=== PATIENT | female | born 1995 | race Caucasian/White ===

== ENCOUNTER 2016-08-16 21:36 | Emergency (ER) | payer OTHER ==
[2016-08-16 22:25] LABS: BILIRUBIN NEGATIVE (NEGATIVE); BLOOD 3+ Ery/uL (NEGATIVE); COLOR YELLOW (YELLOW); GLUCOSE (U) NORMAL (NORMAL); KETONE (U) NEGATIVE (NEGATIVE); LEUKOCYTES NEGATIVE Leu/uL (NEGATIVE); NITRITE NEGATIVE (NEGATIVE); PROTEIN NEGATIVE (NEGATIVE); SPECIFIC GRAVITY 1.015 (1.001-1.030); UROBILINOGEN 0.2 mg/dL (0.2-1.0); pH 6.5 (5.0-9.0)
[2016-08-16 22:25] LABS: BASOPHIL 0.5 % (0-2); EOSINOPHIL 2.7 % (0-5); HCT 38.6 % (37.0-47.0); HGB 12.7 g/dl (12.5-16.0); LYMPHOCYTE 45.2 % (15-48); MCHC 32.9 g/dL (32.0-36.0); MCV 88.1 fL (78.0-100.0); MONOCYTE 14.6 % (0-12); MPV 11.5 fL (6.0-9.5); PLT 355 K/uL (150-400); RBC 4.38 M/uL (4.20-5.40); RDW 13.5 % (11.5-14.0); WBC 9.4 K/uL (4.0-10.5)
[2016-08-16 22:26] LABS: CLARITY SLIGHTLY HAZY (CLEAR)
[2016-08-16 22:30] LABS: BACTERIA TRACE
[2016-08-16 22:32] LABS: AMPHETAMINES NEGATIVE (NEGATIVE); BARBITURATES NEGATIVE (NEGATIVE); BENZODIAZEPINES NEGATIVE (NEGATIVE); COCAINE NEGATIVE (NEGATIVE); MARIJUANA (THC) NEGATIVE (NEGATIVE); METHADONE NEGATIVE (NEGATIVE); TRICYCLIC ANTIDEPRESSANT NEGATIVE (NEGATIVE)
[2016-08-16 22:43] LABS: BILIRUBIN - TOTAL 0.4 mg/dL (0.1-1.0); CREATININE 0.6 mg/dL (0.5-1.0); POTASSIUM 4.3 mmol/L (3.5-5.1)
== END 2016-08-17 00:15 | disposition home or self-care (01) ==
LOC: FER 21:36
PROVIDERS: Internal Medicine
DX: R10.9 Unspecified abdominal pain (principal); R19.00 Intra-abdominal and pelvic swelling, mass and lump, unspecified site; E11.9 Type 2 diabetes mellitus without complications; Z86.14 Personal history of Methicillin resistant Staphylococcus aureus infection; Z91.040 Latex allergy status; Z79.4 Long term (current) use of insulin
CPT/HCPCS: 36415; 74022; 80053; 80305; 81001; 83690; 85025

== ENCOUNTER 2016-08-25 19:17 | Emergency (ER) | payer OTHER ==
[2016-08-25 20:33] LABS: BILIRUBIN 2+ mg/dL (NEGATIVE); BLOOD NEGATIVE Ery/uL (NEGATIVE); COLOR YELLOW (YELLOW); GLUCOSE (U) NORMAL (NORMAL); KETONE (U) NEGATIVE (NEGATIVE); LEUKOCYTES NEGATIVE Leu/uL (NEGATIVE); NITRITE NEGATIVE (NEGATIVE); PROTEIN TRACE (LOW) mg/dL (NEGATIVE); SPECIFIC GRAVITY >=1.030 (1.001-1.030); UROBILINOGEN >=8.0 mg/dL (0.2-1.0); pH 5.5 (5.0-9.0)
[2016-08-25 20:35] LABS: CLARITY SLIGHTLY HAZY (CLEAR)
[2016-08-25 20:54] LABS: BASOPHIL 1.7 % (0-2); EOSINOPHIL 1.2 % (0-5); HCT 42.9 % (37.0-47.0); HGB 15.1 g/dl (12.5-16.0); LYMPHOCYTE 43.1 % (15-48); MCH 29.3 pg (25.0-31.0); MCHC 35.2 g/dL (32.0-36.0); MCV 83.1 fL (78.0-100.0); MONOCYTE 17.8 % (0-12); MPV 10.7 fL (6.0-9.5); NEUTROPHIL 36.2 % (41-80); PLT 336 K/uL (150-400); RBC 5.16 M/uL (4.20-5.40); RDW 13.6 % (11.5-14.0); WBC 8.6 K/uL (4.0-10.5)
[2016-08-25 21:43] LABS: ALBUMIN 4.7 g/dL (3.5-5.0); CREATININE 0.8 mg/dL (0.5-1.0); GLOBULIN (CALCULATION) 2.9 g/dL (2.2-4.2); POTASSIUM 4.2 mmol/L (3.5-5.1); TOTAL PROTEIN 7.6 g/dL (6.4-8.3)
== END 2016-08-25 22:14 | disposition home or self-care (01) ==
LOC: FER 19:17
PROVIDERS: Nurse Practitioner Family
DX: J20.9 Acute bronchitis, unspecified (principal)
CPT/HCPCS: 36415; 71020; 80053; 81003; 85025; 94640; 94760

== ENCOUNTER 2016-10-21 11:39 | Emergency (ER) | payer OTHER | END 2016-10-21 12:59 | disposition left against medical advice (07) | LOC: FER 11:39 | DX: K08.89 Other specified disorders of teeth and supporting structures (principal); R68.84 Jaw pain; Z53.8 Procedure and treatment not carried out for other reasons ==